=== PATIENT | female | born 1970 | race Caucasian/White ===

== ENCOUNTER 2018-04-01 11:57 | Emergency (ER) | payer OTHER ==
[2018-04-01] MEDS: CEPHALEXIN 500 MG CAP PO (12:47)
== END 2018-04-01 13:36 | disposition home or self-care (01) ==
LOC: FTE 13:36
DX: L03.90 Cellulitis, unspecified (principal); T21.25XA Burn of second degree of buttock, initial encounter; X10.0XXA Contact with hot drinks, initial encounter; Y92.9 Unspecified place or not applicable
CPT/HCPCS: 99283; Z7502